=== PATIENT | female | born 1985 | race Two or more races ===

== ENCOUNTER 2019-04-03 12:33 | Emergency (ER) | payer OTHER ==
[2019-04-03 12:51] VITALS: BP 132/81
[2019-04-03] MEDS ORDERED: BUFFERED LIDOCAINE 10 ML SYRINGE SUBQ STA (13:56)
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
== END 2019-04-03 15:04 | disposition home or self-care (01) ==
LOC: ED 12:33
DX: S81.012A Laceration without foreign body, left knee, initial encounter (principal); W20.8XXA Other cause of strike by thrown, projected or falling object, initial encounter; Y92.009 Unspecified place in unspecified non-institutional (private) residence as the place of occurrence of the external cause
CPT/HCPCS: 12002; 99283